=== PATIENT | female | born 1955 | race Caucasian/White ===

== ENCOUNTER 2017-10-17 18:48 | Emergency (ER) | payer OTHER ==
[~2017-10-17] VITALS: Ht 142.2 cm; Wt 59.0 kg
[~2017-10-17 18:48] MED LIST: ADVAIR 100-501 EACH INH; AMITRIPTYLINE H25 M2 PO; AMOXICILLIN 50500 MG PO; AUGMENTIN 875875 M1 PO; CELEXA40 MG PO; CLARITIN10 MG PO; COLACE 100 MG100 MG PO; CYCLOBENZAPRINE10 MG PO; DESYREL100 MG PO; DESYREL50 MG PO; ESTRACE1 MG PO; FLONASE 0.05%50 MCG NS; FLOVENT HFA 2220 MC1 IH; GYNODIOL0.5 MG PO; HYDROCODONE-AP1 EAC6 PO; IBUPROFEN 600600 M1 PO; LEVOTHROID50 MCG PO; MIRALAX255 GM PO; MULTIVITAMINS1 EAC7 PO; NASONEX17 GM NS; NORCO 5-325 TA1 EACH PO; OMEPRAZOLE20 M2 PO; PROAIR HFA8.5 GM INH; PROVENTIL; PROZAC40 MG PO; ROBAXIN 750 MG750 M1 PO; SIMVASTATIN40 MG PO; SKELAXIN 800 M800 M1 PO; TESSALON200 MG PO; ULTRAM 50MG TAB50 MG PO; VITAMIN D400 UNI1 PO; WELLBUTRIN 100100 MG PO; WELLBUTRIN XL150 M2 PO; ZOCOR 10 MG TAB10 MG PO; ZPAK PO
[2017-10-17] MEDS ORDERED: ZOLOFT25 MG PO (19:01)
[2017-10-17] MEDS ORDERED: ABILIFY10 MG PO (19:01)
[2017-10-17] MEDS ORDERED: CLONAZEPAM 0.50.5 M1 PO (19:01)
[2017-10-17 19:49] LABS: HEMOGLOBIN 10.1 gm/dL (12.0-15.0); MCH 29.6 pg (26.0-34.0); MCHC 32.6 g/dL (28.0-37.0); MCV 90.8 fL (80.0-100.0); NUCLEATED RBCS 0 /100WBC; PLATELET COUNT* 391 thou/uL (150-400); RBC 3.41 mil/uL (4.20-5.00); RDW-CV 13.4 % (10.5-14.5); WBC 16.3 thou/uL (4.0-11.0)
[2017-10-17 19:51] VITALS: BP 128/48
[2017-10-17 19:52] LABS: CALCIUM 8.1 mg/dL (8.5-10.1); CREATININE 1.2 mg/dL (0.6-1.3); POTASSIUM 3.7 mmol/L (3.5-5.1)
[2017-10-17 19:57] LABS: ALBUMIN 2.6 g/dL (3.4-5.0); TOTAL BILIRUBIN 0.4 mg/dL (<0.1-1.0); TOTAL PROTEIN 6.7 g/dL (6.4-8.2)
[2017-10-17 20:36] LABS: ABSOLUTE LYMPHOCYTES 1.6 thou/uL (0.8-5.3); ABSOLUTE MONOCYTES 0.7 thou/uL (0.0-1.2)
[2017-10-17 20:37] LABS: PLATELET ESTIMATE ADEQUATE
[2017-10-17 20:40] LABS: URINE BILIRUBIN NEGATIVE (Negative); URINE BLOOD TRACE (Negative); URINE CLARITY CLEAR; URINE COLOR YELLOW; URINE GLUCOSE-RANDOM NEGATIVE (Negative); URINE KETONES NEGATIVE (Negative); URINE LEUKOCYTES-REFLEX 1+ (Negative); URINE NITRITE-REFLEX NEGATIVE (Negative); URINE PROTEIN NEGATIVE (Negative); URINE UROBILINOGEN 0.2 E.U./dl (0.2-1.0)
[2017-10-17 20:48] LABS: BACTERIA-REFLEX 1-9 Few /HPF (None Seen); CASTS None Seen /LPF (None Seen); CRYSTALS None Seen /LPF (None Seen); SQUAMOUS 0-3 Few /LPF (0-3); URINE RBC 3-10 Few /HPF (0-2); URINE WBC-REFLEX 6-15 Few /HPF (0-5)
== END 2017-10-17 19:54 | disposition left against medical advice (07) ==
LOC: M.ERS 18:48
PROVIDERS: Nurse Practitioner Family
DX: R07.81 Pleurodynia (principal); E78.00 Pure hypercholesterolemia, unspecified; F32.9 Major depressive disorder, single episode, unspecified; J45.998 Other asthma; F17.210 Nicotine dependence, cigarettes, uncomplicated; Z90.710 Acquired absence of both cervix and uterus; Z90.49 Acquired absence of other specified parts of digestive tract

== ENCOUNTER 2019-02-12 13:57 | Emergency (ER) | payer OTHER ==
[~2019-02-12] VITALS: Ht 142.2 cm; Wt 59.0 kg
[~2019-02-12 13:57] MED LIST changes: +ABILIFY10 MG PO; +CLONAZEPAM 0.50.5 M1 PO; +ZOLOFT25 MG PO
[2019-02-12] MEDS ORDERED: MEDROLDOSEPACK PO (14:44)
[2019-02-12] MEDS ORDERED: DOXYCYCLINE 10100 MG PO (14:44)
[2019-02-12] MEDS ORDERED: PROAIR HFA8.5 GM INH (14:44)
[2019-02-12] MEDS ORDERED: PROMETHAZI6.25 MG/5 PO (14:44)
[2019-02-12] MEDS ORDERED: NORCO 5-325 TA1 EAC1 PO (15:15)
[2019-02-12 15:20] VITALS: BP 168/75
== END 2019-02-12 15:23 | disposition home or self-care (01) ==
LOC: M.ERS 13:57
DX: J20.9 Acute bronchitis, unspecified (principal); N76.4 Abscess of vulva; E78.00 Pure hypercholesterolemia, unspecified; F32.9 Major depressive disorder, single episode, unspecified; F17.210 Nicotine dependence, cigarettes, uncomplicated; Z90.710 Acquired absence of both cervix and uterus; Z90.49 Acquired absence of other specified parts of digestive tract

== ENCOUNTER 2020-01-12 13:16 | Emergency (ER) | payer OTHER ==
[~2020-01-12] VITALS: Ht 142.2 cm; Wt 59.0 kg
[~2020-01-12 13:16] MED LIST changes: +DOXYCYCLINE 10100 MG PO; +MEDROLDOSEPACK PO; +NORCO 5-325 TA1 EAC1 PO; +PROMETHAZI6.25 MG/5 PO
[2020-01-12] MEDS ORDERED: IBUPROFEN 600600 M1 PO (16:21)
[2020-01-12] MEDS ORDERED: NORCO 5-325 TA1 EAC2 PO (16:21)
[2020-01-12 16:28] VITALS: BP 142/70
--- NOTE | 2020-01-15 08:36 | EKG ---
[place] [address] ELECTROCARDIOGRAM REPORT Name: HILLARY NAIR Room: [facility]#: [id number] Admission: 01/12/20 Attend Phys: Discharge: 01/12/20 Date of : 57 Date of Service: 01/12/20 1324 Report #: [id number] THIS REPORT FOR: //name// [facility] ED Test Date: 2020-01-12 Test Time: 13:24:57 Pat Name: HILLARY NAIR Department: Room: Gender: F [employer] Spr[employer] Gun: BRODERICK : 1955 Requested By: Aziza Douglass Order Number: [id number] Reading MD: Hernandez Hudson Measurements Intervals Wilson Rate: 81 P: 14 HI: 155 QRS: 24 QRSD: 79 T: 28 QT: 380 QTc: 441 Interpretive Statements Sinus rhythm No previous ECG available for comparison Electronically Signed On 01-15-2020 8:36:35 [employer] CLAIM ADJUSTER by Hernandez Hudson [email or web address] <ELECTRONICALLY SIGNED> By: Matias Hudson MD, [facility] 01/15/20 0836 1324 1324 Matias Hudson MD, FACC /EPI
== END 2020-01-12 16:30 | disposition home or self-care (01) ==
LOC: M.ERS 13:16
DX: S16.1XXA Strain of muscle, fascia and tendon at neck level, initial encounter (principal); S00.83XA Contusion of other part of head, initial encounter; R07.81 Pleurodynia; M25.552 Pain in left hip; M25.562 Pain in left knee; M79.672 Pain in left foot; R10.2 Pelvic and perineal pain; M79.605 Pain in left leg; F17.210 Nicotine dependence, cigarettes, uncomplicated; E78.00 Pure hypercholesterolemia, unspecified; F32.9 Major depressive disorder, single episode, unspecified; J45.909 Unspecified asthma, uncomplicated; Z90.711 Acquired absence of uterus with remaining cervical stump; Z90.49 Acquired absence of other specified parts of digestive tract; W18.2XXA Fall in (into) shower or empty bathtub, initial encounter; Y93.E8 Activity, other personal hygiene; Y92.091 Bathroom in other non-institutional residence as the place of occurrence of the external cause; Y99.8 Other external cause status

== ENCOUNTER 2020-05-06 16:52 | Emergency (ER) | payer OTHER ==
[~2020-05-06] VITALS: Ht 139.7 cm; Wt 59.0 kg
[~2020-05-06 16:52] MED LIST changes: +NORCO 5-325 TA1 EAC2 PO
[2020-05-06] MEDS ORDERED: ZOLOFT50 M1 PO (17:06)
[2020-05-06] MEDS ORDERED: AMITRIPTYLINE H75 M2 PO (17:07)
[2020-05-06] MEDS ORDERED: KLONOPIN1 MG PO (17:07)
[2020-05-06] MEDS ORDERED: TRAZODONE HCL50 MG PO (17:07)
[2020-05-06 17:46] LABS: ABSOLUTE LYMPHOCYTES 1.4 thou/uL (0.8-5.3); ABSOLUTE MONOCYTES 0.3 thou/uL (0.0-1.2); ABSOLUTE NEUTROPHILS 3.2 thou/uL (1.6-8.1); BASOPHILS 0.3 %; HEMATOCRIT 37.3 % (37.0-47.0); HEMOGLOBIN 12.6 gm/dL (12.0-15.0); LYMPHOCYTES 28.3 %; MCH 30.3 pg (26.0-34.0); MCHC 33.8 g/dL (28.0-37.0); MCV 89.8 fL (80.0-100.0); MONOCYTES 6.5 %; MPV 6.7 fl. (7.2-11.1); NUCLEATED RBCS 0 /100WBC; PLATELET COUNT* 194 thou/uL (150-400); POLYS 64.9 %; RBC 4.16 mil/uL (4.20-5.00); RDW-CV 13.4 % (10.5-14.5)
[2020-05-06 17:54] LABS: CALCIUM 8.7 mg/dL (8.5-10.1); CREATININE 0.8 mg/dL (0.6-1.3); POTASSIUM 3.7 mmol/L (3.5-5.1)
[2020-05-06 17:58] LABS: ALBUMIN 3.9 g/dL (3.4-5.0); TOTAL BILIRUBIN 0.4 mg/dL (<0.1-1.0); TOTAL PROTEIN 7.1 g/dL (6.4-8.2)
[2020-05-06 18:36] LABS: URINE BILIRUBIN NEGATIVE (Negative); URINE BLOOD TRACE (Negative); URINE CLARITY CLEAR; URINE COLOR YELLOW; URINE GLUCOSE-RANDOM NEGATIVE (Negative); URINE KETONES NEGATIVE (Negative); URINE LEUKOCYTES-REFLEX NEGATIVE (Negative); URINE NITRITE-REFLEX NEGATIVE (Negative); URINE PROTEIN NEGATIVE (Negative); URINE SPECIFIC GRAVITY 1.015 (1.005-1.030); URINE UROBILINOGEN 0.2 E.U./dl (0.2-1.0)
[2020-05-06] MEDS ORDERED: PHENERGAN 25 MG25 M1 PO (18:46)
[2020-05-06] MEDS ORDERED: TRAMADOL 50 MG50 MG PO (18:46)
[2020-05-06] MEDS ORDERED: XANAX 0.5 MG0.5 M1 PO (18:46)
[2020-05-06 19:03] VITALS: BP 176/88
== END 2020-05-06 19:04 | disposition home or self-care (01) ==
LOC: M.ERS 16:52
PROVIDERS: Nurse Practitioner Family
DX: S50.02XA Contusion of left elbow, initial encounter (principal); A08.4 Viral intestinal infection, unspecified; F41.9 Anxiety disorder, unspecified; Z20.822 Contact with and (suspected) exposure to COVID-19; E78.00 Pure hypercholesterolemia, unspecified; F17.210 Nicotine dependence, cigarettes, uncomplicated; Z90.710 Acquired absence of both cervix and uterus; Z90.49 Acquired absence of other specified parts of digestive tract; W01.0XXA Fall on same level from slipping, tripping and stumbling without subsequent striking against object, initial encounter; Y93.89 Activity, other specified; Y92.89 Other specified places as the place of occurrence of the external cause; Y99.8 Other external cause status